=== PATIENT | male | born 1980 | race Native Hawaiian/Other Pacific Islander ===

== ENCOUNTER 2017-03-23 13:56 | Emergency (ER) | payer BC ==
[~2017-03-23] VITALS: Ht 182.9 cm; Wt 103.4 kg
[~2017-03-23 13:56] MED LIST: INSUINJ47 SC
== END 2017-03-23 17:05 | disposition home or self-care (01) ==
LOC: ED 13:56
DX: R51 Headache (principal); M54.2 Cervicalgia
CPT/HCPCS: 80307; 81000; 82550; 84484; 93005; 96365; 96375; 99284; G0479; J2405; J2550

== ENCOUNTER 2017-04-15 14:09 | Emergency (ER) | payer BC ==
[~2017-04-15] VITALS: Ht 182.9 cm; Wt 104.3 kg
[2017-04-15 14:15] VITALS: TEMP 98.7
[2017-04-15] MEDS ORDERED: METFTAB PO (14:26)
[2017-04-15 14:44] LABS: PLATELET COUNT 49 K/uL (142-355)
[2017-04-15 14:53] LABS: POTASSIUM 4.1 mmol/L (3.6-5.2); SODIUM 138 mmol/L (136-145)
[2017-04-15 15:44] VITALS: BP 134/89
== END 2017-04-15 15:48 | disposition home or self-care (01) ==
LOC: ED 14:09
PROVIDERS: Family Medicine
DX: K52.9 Noninfective gastroenteritis and colitis, unspecified (principal); K21.9 Gastro-esophageal reflux disease without esophagitis; E86.9 Volume depletion, unspecified; R19.7 Diarrhea, unspecified; R11.2 Nausea with vomiting, unspecified
CPT/HCPCS: 36415; 80048; 81000; 85027; 86318; 96360; 99284

== ENCOUNTER 2017-04-24 15:44 | Emergency (ER) | payer BC ==
[~2017-04-24] VITALS: Ht 182.9 cm; Wt 104.3 kg
[~2017-04-24 15:44] MED LIST changes: +METFTAB PO
[2017-04-24 15:57] VITALS: TEMP 98.9
[2017-04-24 16:21] VITALS: BP 128/74
== END 2017-04-24 16:22 | disposition home or self-care (01) ==
LOC: ED 15:44
DX: S91.332A Puncture wound without foreign body, left foot, initial encounter (principal); S91.331A Puncture wound without foreign body, right foot, initial encounter; W45.0XXA Nail entering through skin, initial encounter; Y92.098 Other place in other non-institutional residence as the place of occurrence of the external cause
CPT/HCPCS: 90471; 90715; 96372; 99283; J0696

== ENCOUNTER 2018-11-13 16:55 | Emergency (ER) | payer OTHER ==
[~2018-11-13] VITALS: Ht 182.9 cm; Wt 101.6 kg
[2018-11-13 17:00] VITALS: BP 134/93; TEMP 98
[2018-11-13] MEDS ORDERED: TRESIBA FL100 UNIT/M SC (17:16)
[2018-11-13] MEDS ORDERED: ACID REDUCER150 MG PO (17:17)
[2018-11-13] MEDS ORDERED: GABA300C2 PO (17:17)
[2018-11-13] MEDS ORDERED: MOBIC15 MG PO (17:18)
== END 2018-11-13 18:22 | disposition home or self-care (01) ==
LOC: ED 16:55
DX: J02.0 Streptococcal pharyngitis (principal); E11.65 Type 2 diabetes mellitus with hyperglycemia
CPT/HCPCS: 36415; 87651; 99284

== ENCOUNTER 2019-03-06 08:16 | Emergency (ER) | payer OTHER ==
[~2019-03-06] VITALS: Ht 182.9 cm; Wt 101.6 kg
[~2019-03-06 08:16] MED LIST changes: +ACID REDUCER150 MG PO; +GABA300C2 PO; +MOBIC15 MG PO; +TRESIBA FL100 UNIT/M SC
[2019-03-06 08:21] VITALS: TEMP 97.9
[2019-03-06 09:46] LABS: POTASSIUM 4.2 mmol/L (3.6-5.2)
[2019-03-06 10:12] LABS: PLATELET COUNT 71 K/uL (142-355)
[2019-03-06 11:15] VITALS: BP 112/78
== END 2019-03-06 11:15 | disposition home or self-care (01) ==
LOC: ED 08:16
PROVIDERS: Family Medicine
DX: S30.1XXA Contusion of abdominal wall, initial encounter (principal); S30.811A Abrasion of abdominal wall, initial encounter; E10.65 Type 1 diabetes mellitus with hyperglycemia; W22.8XXA Striking against or struck by other objects, initial encounter; Y92.69 Other specified industrial and construction area as the place of occurrence of the external cause
CPT/HCPCS: 80053; 85027; 99283

== ENCOUNTER 2019-06-30 11:44 | Emergency (ER) | payer OTHER ==
[~2019-06-30] VITALS: Ht 182.9 cm; Wt 102.1 kg
[2019-06-30 11:51] VITALS: TEMP 97.8
[2019-06-30 15:18] VITALS: BP 121/69
== END 2019-06-30 15:18 | disposition home or self-care (01) ==
LOC: ED 11:44
DX: M54.12 Radiculopathy, cervical region (principal); M54.16 Radiculopathy, lumbar region
CPT/HCPCS: 96372; 99283; J2360

== ENCOUNTER 2019-10-02 11:33 | Emergency (ER) | payer OTHER ==
[~2019-10-02] VITALS: Ht 182.9 cm; Wt 102.1 kg
[2019-10-02 11:45] VITALS: TEMP 100.1
[2019-10-02 12:33] LABS: PLATELET COUNT 30 K/uL (142-355)
[2019-10-02 12:43] LABS: POTASSIUM 3.8 mmol/L (3.6-5.2)
[2019-10-02 15:00] VITALS: BP 100/60
== END 2019-10-02 15:14 | disposition home or self-care (01) ==
LOC: ED 11:33
PROVIDERS: Family Medicine
DX: J10.1 Influenza due to other identified influenza virus with other respiratory manifestations (principal); R11.2 Nausea with vomiting, unspecified; E11.65 Type 2 diabetes mellitus with hyperglycemia; F17.210 Nicotine dependence, cigarettes, uncomplicated
CPT/HCPCS: 80053; 81000; 85027; 87502; 87651; 96360; 96375; 99284; J1815; J2405

== ENCOUNTER 2019-12-25 14:22 | Emergency (ER) | payer OTHER ==
[~2019-12-25] VITALS: Ht 182.9 cm; Wt 102.1 kg
[2019-12-25 14:22] VITALS: TEMP 97.9
[2019-12-25 14:50] LABS: PLATELET COUNT 66 K/uL (142-355)
[2019-12-25 14:59] LABS: POTASSIUM 3.9 mmol/L (3.6-5.2); SODIUM 134 mmol/L (136-145)
[2019-12-25 17:13] VITALS: BP 118/76
== END 2019-12-25 17:13 | disposition home or self-care (01) ==
LOC: ED 14:22
PROVIDERS: Family Medicine
DX: S00.83XA Contusion of other part of head, initial encounter (principal); S13.4XXA Sprain of ligaments of cervical spine, initial encounter; S23.3XXA Sprain of ligaments of thoracic spine, initial encounter; S33.5XXA Sprain of ligaments of lumbar spine, initial encounter; S70.12XA Contusion of left thigh, initial encounter; S70.11XA Contusion of right thigh, initial encounter; V49.50XA Passenger injured in collision with unspecified motor vehicles in traffic accident, initial encounter; Y92.89 Other specified places as the place of occurrence of the external cause
CPT/HCPCS: 80053; 85027; 99283

== ENCOUNTER 2020-01-01 12:30 | Emergency (ER) | payer OTHER ==
[~2020-01-01] VITALS: Ht 182.9 cm; Wt 102.1 kg
[2020-01-01 12:40] VITALS: BP 128/84; TEMP 97.3
== END 2020-01-01 13:27 | disposition home or self-care (01) ==
LOC: ED 12:30
DX: S39.012A Strain of muscle, fascia and tendon of lower back, initial encounter (principal); Z79.899 Other long term (current) drug therapy
CPT/HCPCS: 96372; 99282; J1885

== ENCOUNTER 2020-03-05 14:39 | Emergency (ER) | payer OTHER ==
[~2020-03-05] VITALS: Ht 182.9 cm; Wt 102.1 kg
[2020-03-05 14:48] VITALS: TEMP 99.1
[2020-03-05 15:46] LABS: PLATELET COUNT 64 K/uL (142-355)
[2020-03-05 15:49] LABS: POTASSIUM 4.7 mmol/L (3.6-5.2)
[2020-03-05 17:19] VITALS: BP 118/74
== END 2020-03-05 17:29 | disposition home or self-care (01) ==
LOC: ED 14:39
PROVIDERS: Emergency Medicine
DX: G43.909 Migraine, unspecified, not intractable, without status migrainosus (principal)
CPT/HCPCS: 80053; 82550; 82553; 84484; 85027; 93005; 99284; J2175

== ENCOUNTER 2020-06-19 18:24 | Emergency (ER) | payer OTHER ==
[~2020-06-19] VITALS: Ht 182.9 cm; Wt 101.6 kg
[2020-06-19 19:46] LABS: PLATELET COUNT 69 K/uL (142-355)
[2020-06-19 19:48] LABS: POTASSIUM 4.5 mmol/L (3.6-5.2)
[2020-06-19 20:50] VITALS: BP 132/81; TEMP 98.7
== END 2020-06-19 20:50 | disposition home or self-care (01) ==
LOC: ED 18:24
PROVIDERS: Emergency Medicine Emergency Medical Services
DX: B34.9 Viral infection, unspecified (principal); Z20.828 Contact with and (suspected) exposure to other viral communicable diseases
CPT/HCPCS: 36415; 80053; 85027; 87635; 96360; 96372; 96375; 99284; J1815; J1885; J2405; U0003

== ENCOUNTER 2021-09-07 12:36 | Emergency (ER) | payer OTHER ==
[~2021-09-07] VITALS: Ht 182.9 cm; Wt 101.6 kg
[2021-09-07 12:40] VITALS: TEMP 97.4
[2021-09-07 13:40] VITALS: BP 112/78
== END 2021-09-07 13:40 | disposition home or self-care (01) ==
LOC: ED 12:36
DX: M54.59 Other low back pain (principal); Z87.440 Personal history of urinary (tract) infections
CPT/HCPCS: 81000; 99282

== ENCOUNTER 2021-09-13 20:43 | Emergency (ER) | payer OTHER ==
[~2021-09-13] VITALS: Ht 182.9 cm; Wt 97.5 kg
[2021-09-13 22:30] VITALS: BP 146/90; TEMP 98
== END 2021-09-13 22:30 | disposition home or self-care (01) ==
LOC: ED 20:43
DX: S60.221A Contusion of right hand, initial encounter (principal); L03.113 Cellulitis of right upper limb; W20.8XXA Other cause of strike by thrown, projected or falling object, initial encounter; Y92.89 Other specified places as the place of occurrence of the external cause
CPT/HCPCS: 96372; 99283; J1885

== ENCOUNTER 2022-04-14 09:45 | Emergency (ER) | payer OTHER ==
[~2022-04-14] VITALS: Ht 182.9 cm; Wt 97.5 kg
[2022-04-14 10:34] LABS: POTASSIUM 4.4 mmol/L (3.6-5.2)
[2022-04-14 11:11] LABS: PLATELET COUNT 44 K/uL (142-355)
[2022-04-14 11:23] LABS: PARTIAL THROMBOPLASTIN TIME 22.4 SECONDS (24.5-33.6)
[2022-04-14 12:10] VITALS: BP 121/74; TEMP 98.9
== END 2022-04-14 12:13 | disposition home or self-care (01) ==
LOC: ED 09:45
PROVIDERS: Emergency Medicine Emergency Medical Services
DX: R07.89 Other chest pain (principal); J42 Unspecified chronic bronchitis; F17.210 Nicotine dependence, cigarettes, uncomplicated
CPT/HCPCS: 80053; 83735; 84484; 85027; 85379; 85610; 85730; 93005; 96360; 99284

== ENCOUNTER 2022-06-01 09:38 | Emergency (ER) | payer OTHER ==
[~2022-06-01] VITALS: Ht 182.9 cm; Wt 97.5 kg
[2022-06-01 09:50] VITALS: BP 116/76; TEMP 97.6
[2022-06-01 10:27] LABS: POTASSIUM 4.2 mmol/L (3.6-5.2)
[2022-06-01 10:41] LABS: PLATELET COUNT 17 K/uL (142-355)
== END 2022-06-01 11:23 | disposition home or self-care (01) ==
LOC: ED 09:38
PROVIDERS: Emergency Medicine
DX: A08.39 Other viral enteritis (principal); D47.3 Essential (hemorrhagic) thrombocythemia; U07.1 COVID-19
CPT/HCPCS: 80053; 81002; 83690; 84484; 85007; 85027; 87502; 87635; 93005; 96360; 96374; 96375; 99284; J2270; J2405; U0003

== ENCOUNTER 2022-07-02 18:19 | Emergency (ER) | payer OTHER ==
[~2022-07-02] VITALS: Ht 182.9 cm; Wt 88.5 kg
[2022-07-02 19:00] LABS: POTASSIUM 3.5 mmol/L (3.6-5.2)
[2022-07-02 19:03] LABS: PLATELET COUNT 46 K/uL (142-355)
[2022-07-02 19:45] VITALS: BP 140/82; TEMP 99.1
== END 2022-07-02 19:45 | disposition home or self-care (01) ==
LOC: ED 18:19
PROVIDERS: Family Medicine
DX: A08.39 Other viral enteritis (principal); E11.65 Type 2 diabetes mellitus with hyperglycemia
CPT/HCPCS: 36415; 80053; 80307; 81002; 85027; 96372; 99283; J2405

== ENCOUNTER 2022-07-21 15:53 | Emergency (ER) | payer OTHER ==
[~2022-07-21] VITALS: Ht 182.9 cm; Wt 88.5 kg
[2022-07-21 16:00] VITALS: TEMP 97.3
[2022-07-21 16:43] LABS: POTASSIUM 3.4 mmol/L (3.6-5.2)
[2022-07-21 17:02] LABS: PLATELET COUNT 43 K/uL (142-355)
[2022-07-21 17:46] VITALS: BP 119/72
== END 2022-07-21 17:54 | disposition home or self-care (01) ==
LOC: ED 15:53
PROVIDERS: Emergency Medicine Emergency Medical Services
DX: R07.89 Other chest pain (principal); J20.9 Acute bronchitis, unspecified
CPT/HCPCS: 36415; 80048; 83735; 84484; 85027; 93005; 96360; 99284

== ENCOUNTER 2022-08-07 20:36 | Emergency (ER) | payer OTHER ==
[~2022-08-07] VITALS: Ht 182.9 cm; Wt 93.0 kg
[2022-08-07] MEDS ORDERED: OZEMPIC2 MG/1.5 M SC (21:28)
[2022-08-07] MEDS ORDERED: LISI10TA11 PO (21:31)
[2022-08-07 21:55] VITALS: BP 126/70; TEMP 98.7
== END 2022-08-07 21:55 | disposition home or self-care (01) ==
LOC: ED 20:36
DX: R09.81 Nasal congestion (principal); R51.9 Headache, unspecified; E11.9 Type 2 diabetes mellitus without complications; Z79.4 Long term (current) use of insulin
CPT/HCPCS: 99283

== ENCOUNTER 2022-08-22 17:09 | Emergency (ER) | payer OTHER ==
[~2022-08-22] VITALS: Ht 182.9 cm; Wt 95.7 kg
[~2022-08-22 17:09] MED LIST changes: +LISI10TA11 PO; +OZEMPIC2 MG/1.5 M SC
[2022-08-22 18:00] VITALS: BP 134/78; TEMP 98.5
== END 2022-08-22 18:00 | disposition home or self-care (01) ==
LOC: ED 17:09
DX: B34.9 Viral infection, unspecified (principal); Z20.822 Contact with and (suspected) exposure to COVID-19
CPT/HCPCS: 87502; 87635; 99283; J1100; U0003

== ENCOUNTER 2022-09-02 14:29 | Emergency (ER) | payer OTHER ==
[~2022-09-02] VITALS: Ht 182.9 cm; Wt 95.7 kg
[2022-09-02 14:38] VITALS: TEMP 98.5
[2022-09-02 15:39] LABS: POTASSIUM 4.1 mmol/L (3.6-5.2); SODIUM 136 mmol/L (136-145)
[2022-09-02 15:48] LABS: PLATELET COUNT 56 K/uL (142-355)
[2022-09-02 17:30] VITALS: BP 129/89
== END 2022-09-02 17:30 | disposition home or self-care (01) ==
LOC: ED 14:29
PROVIDERS: Emergency Medicine
DX: E11.65 Type 2 diabetes mellitus with hyperglycemia (principal); Z79.84 Long term (current) use of oral hypoglycemic drugs
CPT/HCPCS: 80053; 81002; 84484; 85027; 93005; 96360; 96361; 96374; 96375; 99283; 99284; J1815

== ENCOUNTER 2022-12-11 13:55 | Emergency (ER) | payer OTHER ==
[~2022-12-11] VITALS: Ht 182.9 cm; Wt 89.8 kg
[2022-12-11 14:10] VITALS: BP 125/75; TEMP 97.3
== END 2022-12-11 15:07 | disposition home or self-care (01) ==
LOC: ED 13:55
DX: H10.9 Unspecified conjunctivitis (principal)
CPT/HCPCS: 99283

== ENCOUNTER 2023-01-10 10:56 | Emergency (ER) | payer OTHER ==
[~2023-01-10] VITALS: Ht 182.9 cm; Wt 93.4 kg
[2023-01-10 11:00] VITALS: TEMP 97.8
[2023-01-10 11:34] LABS: PLATELET COUNT 41 K/uL (142-355)
[2023-01-10 11:37] LABS: POTASSIUM 4.5 mmol/L (3.6-5.2)
[2023-01-10 13:22] VITALS: BP 120/74
== END 2023-01-10 13:24 | disposition home or self-care (01) ==
LOC: ED 10:56
PROVIDERS: Family Medicine
DX: R10.31 Right lower quadrant pain (principal); R91.1 Solitary pulmonary nodule
CPT/HCPCS: 36415; 80053; 81002; 85027; 99283

== ENCOUNTER 2023-01-14 09:10 | Outpatient (CLI) | payer OTHER | END 2023-01-14 18:53 | disposition home or self-care (01) | LOC: RAD 09:10 | PROVIDERS: ATTEND Registered Nurse | DX: M25.551 Pain in right hip (principal); M54.41 Lumbago with sciatica, right side ==